=== PATIENT | male | born 1945 | race Hispanic/Latino ===

== ENCOUNTER 2017-08-24 08:41 | Outpatient (CLI) | payer MEDICARE ==
--- NOTE | 2017-08-24 09:05 | RAD ---
LUMBAR SPINE 2 VIEWS: HISTORY: Low back pain. Prior surgery. COMPARISON: 06/29/17. FINDINGS: Bilateral pedicle screws and vertical rods are now in place at the l5-S1 level without perihardware lucency apparent. Other pedicles are intact. Grade I spondylolisthesis at the lumbosacral junction is stable compared to recent CT. Disk space narrowing and osteophytosis throughout the remainder o f the lumbar spine are otherwise stable. IMPRESSION: Operative fixation of the lumbosacral junction without evidence of hardware complication. POS: SHANDA
== END 2017-08-24 08:42 | disposition home or self-care (01) ==
LOC: TBSIIMAG 08:41
PROVIDERS: ATTEND Neurological Surgery
DX: M43.16 Spondylolisthesis, lumbar region (principal)
CPT/HCPCS: 72100

== ENCOUNTER 2017-10-27 12:18 | Outpatient (CLI) | payer MEDICARE ==
[2017-10-27 13:52] LABS: PTT 29.7 SEC (22.9-36.1); Prothrombin Time 13.1 SEC (12.0-14.7)
[2017-10-27 14:05] LABS: Hematocrit 36.9 % (42.0-52.0); Mean Platelet Volume 7.5 fL (7.4-10.4); White Blood Cell (WBC) Count 6.6 thou/uL (4.8-10.8)
== END 2017-10-27 12:19 | disposition home or self-care (01) ==
LOC: LABBT 12:18
PROVIDERS: ATTEND Neurological Surgery
DX: Z01.812 Encounter for preprocedural laboratory examination (principal); G56.03 Carpal tunnel syndrome, bilateral upper limbs
CPT/HCPCS: 85027; 85610; 85730

== ENCOUNTER 2017-10-31 07:17 | Day surgery (SDC) | payer MEDICARE ==
[2017-10-27 12:38] VITALS: BMI 29.0
--- NOTE | 2017-10-30 13:24 | HP ---
HISTORY OF PRESENT ILLNESS: Mr. Gupta is a 72-year-old male who presents with bilateral carpal t unnel syndrome on the right greater than left. He has had this pain, numbness, tingling in his hands and fingers for about 4 years and this has just gotten worse. He has gritty sensation in the ventra l side of the hand and has been dropping things, because of weakness and loss of sensation in the palma d. The pain in the hands wakes him up at night and he has tried to wear splints on his risks, which seemed to help some. EMG evidence of bilateral carpal tunnel from 2014. REVIEW OF SYSTEMS: Ten-point review of systems completed and otherwise negative unless stated in the above HPI. PAST MEDICAL HISTORY: Gout, hypertension, hypercholesterolemia, bilateral carpal tunnel syndrome. PAST SURGICAL HISTORY: Laminectomy with Dr. Harden in 07/2011, L5-S1 laminectomy and TLIF with Dr. Jeevan arrington in 07/2017. HOSPITALIZATIONS: Acute gastroenteritis in 2016. FAMILY HISTORY: Father is at 54 years old with stomach cancer. Mother is at 84 ye ars old with heart attack. Brothers with kidney cancer. Sister has lung cancer diagnosed. The patient's son passed at 7 years old from leukemia, diagnosed with cancer. SOCIAL HISTORY: The patient is a nonsmoker, no alcohol use. Works part-time for [employer]. He is and has 2 sons and 1 daughter. He lives with his spouse. MEDICATIONS: 1. Indomethacin ER 75 mg capsule extended release 1 capsule by mouth twice daily with food. 2. Simvastatin 20 mg tablet, 1 tablet in the evening orally once a day. 3. Lisinopril 10 mg tablet, 1 tablet orally once a day. 4. Allopurinol 300 mg tablet, 1 tablet orally once a day. 5. Claritin 10 mg tablet, 1 tablet orally once a day. ALLERGIES: IV DYE. PHYSICAL EXAMINATION: HEENT: Head is normocephalic, atraumatic. Hearing intact. Moist mucous membranes. Trachea is midl ine. Eyes: Pupils are equal and reactive to light. Extraocular muscles are intact. Sclerae is whi te, nonicteric. PSYCHIATRIC: Normal mood and affect. CARDIOVASCULAR/CARDIOPULMONARY: No cyanosis or clubbing noted. Intact pedal pulses bilaterally. MUSCULOSKELETAL: Upper strength, 4/5 strength in bilateral hands. Full range of motion. Sensory de ficit bilaterally and some positive Tinel's at both hands at the wrist. RESPIRATORY: Even respirations, good effort in all lung sanchez, sound clear with no wheezing or crac kles. NEUROLOGIC: Cranial nerves II through XII grossly intact. Speech is fluent. He answers my question s appropriately. The patient has normal gait and station. ASSESSMENT: Bilateral carpal tunnel syndrome. PLAN: Dr. Pedroza offered a right carpal tunnel surgery for the loss of sensation in his hands. I reviewed the risks, benefits, and possible complications of surgery. The patient fully understands the risk and is willing to proceed with the surgery.
[2017-10-31] MEDS ORDERED: Bacitracin Zinc Ointment 30 gm TUBE ONE (09:21)
[2017-10-31] MEDS ORDERED: Lidocaine 1% (PF) 30 ML VIAL ONE (09:21)
[2017-10-31] MEDS ORDERED: Sodium Chloride 0.9% 10 ML ONE (09:21)
[2017-10-31] MEDS ORDERED: Sodium Chloride 0.9% 0 ML ONE (09:21)
[2017-10-31] MEDS ORDERED: CEFAZOLIN/Water 2 GM/20 ML SYRINGE ONE (09:26)
[2017-10-31] MEDS ORDERED: Fentanyl 100 MCG/2 ML VIAL ONE ×3 (10:05→12:27)
--- NOTE | 2017-10-31 11:49 | OP ---
DATE OF PROCEDURE: 10/01/2017 SURGEON: Francine Pedroza M.D. MECHANICAL ENGINEERING TECHNOLOGIST: Edwin Mcmanus PA-C PREOPERATIVE INDICATION: Treat pain, prevent neurological deterioration. 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 OPERATIVE PROCEDURE: Median neurorrhaphy at the wrist, release of carpal tunnel. PREOPERATIVE MEDICATION: Ancef 2 grams IV. DRAIN NUMBER: Zero. DRAIN TYPE: None. PROCEDURE IN DETAIL: The patient was brought to the operating room. IV sedation was administered. The entire right arm was sterilely prepped and draped. We planned our incision in line with the web space between the ring and middle finger extending from the distal palmar crease of the wrist into th e palm to the base of thenar eminence. Under the planned incision, we infused local anesthetic. We opened with a 15 blade knife and controlled bleeding with bipolar cautery. We placed a self-retainin g retractor and brought the fresh 15 blade into the field. We opened the transverse carpal ligament until we entered the carpal tunnel. We then put a [place] 4 dissector over the median nerve, protec ting and cut the remainder of the transverse carpal ligament on the [place] 4. We continued the tra nsection of the transverse carpal ligament until we encountered the palmar fat pad distally. We then changed directions. We placed a rake under the skin and then placed scissors with the blades inside and outside the transverse carpal ligament and advanced towards the forearm. We completely decompre ssed the median nerve from the forearm to the palm. We irrigated copiously with bacitracin irrigatio n. We closed the skin with vertical mattress sutures. We applied a sterile dressing. This was a cl hesham case and no contamination.
[2017-10-31] MEDS ORDERED: Labetalol HCl 100 MG/20 ML VIAL ONE (12:50)
[2017-10-31] MEDS ORDERED: Labetalol HCl 100 MG/20 ML VIAL SLOW IVP SCH (13:00)
[2017-10-31] MEDS ORDERED: PHENYLEPHRINE-NS 100 MCG/ML 10 ML SYRINGE ONE (14:50)
[2017-10-31] MEDS ORDERED: Dexamethasone 20 MG/5 ML VIAL ONE (14:50)
[2017-10-31] MEDS ORDERED: Lidocaine 1% PF 5 ML VIAL ONE (14:50)
[2017-10-31] MEDS ORDERED: Ondansetron HCl/PF 4 MG/2 ML Vial ONE (14:50)
[2017-10-31] MEDS ORDERED: Propofol 200 MG/20 ML VIAL ONE (14:50)
== END 2017-10-31 14:15 | disposition home or self-care (01) ==
LOC: SDC 07:17
PROVIDERS: ATTEND Neurological Surgery
PROC: 01N50ZZ Release Median Nerve, Open Approach (ICD-10-PCS; principal; 2017-10-31)
DX: G56.01 Carpal tunnel syndrome, right upper limb (principal); I10 Essential (primary) hypertension; M10.9 Gout, unspecified; E78.00 Pure hypercholesterolemia, unspecified; Z98.890 Other specified postprocedural states; Z79.899 Other long term (current) drug therapy; Z91.041 Radiographic dye allergy status; Z98.1 Arthrodesis status
CPT/HCPCS: 96374; A4216; J1100; J2001; J2405; J2704; J3010; J3490

== ENCOUNTER 2018-02-27 09:36 | Day surgery (SDC) | payer MEDICARE ==
[2018-02-26 15:37] VITALS: BMI 30.2
--- NOTE | 2018-02-27 09:10 | HP ---
SHORT STAY HISTORY AND PHYSICAL DATE OF ADMISSION: 02/27/2018 HISTORY OF PRESENT ILLNESS: This is a 72-year-old [place] male, seen by me 2 months ago with abdominal pain, nausea, vomiting, and melena. He had an EGD done in 01/2018 and was found to have ga stric ulcer and also had a gastric polyp. The patient was placed on omeprazole. The patient had dev eloped recurrence of symptoms approximately 10 days ago. He had an episode of abdominal discomfort, nausea, and black tarry stool for nearly 3-4 days. He also felt dizzy and weak. He also passed some mucus discharge per rectum. The patient comes for EGD and colonoscopy, because of above reason. ALLERGIES: IODINE. MEDICAL ILLNESSES: 1. Hyperlipidemia. 2. Hypertension. 3. Gout. 4. Kidney stones. 5. Chronic acid reflux. PHYSICAL EXAMINATION: VITAL SIGNS: Pulse is 70, blood pressure 130/80. HEENT: Conjunctivae clear. CARDIOVASCULAR SYSTEM AND LUNGS: Within normal limits. ABDOMEN: Soft to palpate. No organomegaly. No tenderness. No masses. ADMITTING DIAGNOSES: 1. Recurrent symptoms of abdominal discomfort. 2. Nausea. 3. Dyspepsia. 4. Also history of black tarry stool. 5. He is also passing mucus per rectum. The patient comes for an EGD and a colonoscopy.
--- NOTE | 2018-02-27 12:45 | OP ---
DATE OF PROCEDURE: 02/27/2018 SURGEON: Ezra Chaudhary M.D. OPERATIVE PROCEDURE: Esophagogastroduodenoscopy with biopsy. PREOPERATIVE DIAGNOSES: 1. Dyspepsia. 2. History of melena. 3. Gastric ulcer diagnosed in 01/2018. POSTOPERATIVE DIAGNOSES: 1. Normal esophageal mucosa. 2. Normal duodenum to the 3rd and 4th part. 3. Gastric polyps over the gastric body. 4. Gastric ulcer. PROCEDURE NOTE: The patient was placed on his left lateral position and was given sedation by Anesth esia Department. A Pentax video gastroscope under direct vision was passed into the oropharynx to th e GE junction, into the stomach and subsequent descending duodenum. The vocal cords appeared healthy . The esophageal mucosa appears normal throughout. The GE junction, no pathology. Retroflexion maya led to show any lesion in the fundus or cardia. Over the gastric body, the patient found to have 2-3 small polyps. The polyps were hyperplastic. No other polyps or ulceration. No active bleeding see n. The gastric antrum, no pathology seen. The duodenal bulb and descending duodenum, no pathology s een. Biopsy of the gastric polyp. The stomach was decompressed and the scope removed. DISCHARGE PLANNING: This is a 72-year-old male with abdominal pain, nausea, vomiting, history of black tarry stool and also the mucus discharge per rectum. The EGD showed multiple gastr ic polyps over the gastric body. The colonoscopy showed mild proctitis, nonspecific. He was also fo und to have a large cecal AVM and sigmoid diverticular disease. DISCHARGE RECOMMENDATIONS: 1. High-fiber diet. 2. Continue omeprazole as before. 3. To come back to clinic in 2 weeks.
[2018-02-27] MEDS ORDERED: PROPOFOL 200 MG/20 ML VIAL ONE (13:14)
--- NOTE | 2018-02-27 18:25 | OP ---
DATE OF SURGERY: 02/27/2018 OPERATIVE PROCEDURE: Colonoscopy with biopsy. PREOPERATIVE DIAGNOSES: A 72-year-old male with melena, mucus per rectum and also pos itive stool guaiac. The patient underwent colonoscopy. POSTOPERATIVE DIAGNOSES: 1. Sigmoid diverticular disease. 2. Hemorrhoids. 3. Focal areas of mucosal erythema and edema of the rectum and lower sigmoid area, nonspecific. 4. Polypoid-appearing mucosa, sigmoid colon, most likely represents hyperplastic mucosa of the polyp biopsied. PROCEDURE IN DETAIL: The patient was placed on his left lateral position under given sedation by Ane sthesia Department. A rectal exam was done before scope was advanced into the rectum. No lesion fel t on rectal exam. A Pentax video colonoscope was introduced into the rectum and advanced all the way to the cecum. The prep was excellent. The mucosa appeared normal throughout the colon with normal vascular pattern. The appendiceal orifice, ileocecal valve, no pathology seen. There was a very lar ge area of the cecum, which was not bleeding and not cauterized during the exam. The ascending colon , hepatic flexure, no pathology seen. The transverse colon, splenic flexure, descending colon, no pa thology seen. The sigmoid colon shows mild diverticular disease. At 40 cm from the anal margin, the patient found to have a polypoid-appearing mucosa, which was biopsied. In the rectal vault, the muc william was somewhat erythematous and edematous. The findings were nonspecific. Biopsy was obtained fro m the area. The rectum also had hemorrhoids.
== END 2018-02-27 12:23 | disposition home or self-care (01) ==
LOC: SDC 09:36
PROVIDERS: ATTEND Internal Medicine Gastroenterology
PROC: 0DBE8ZX Excision of Large Intestine, Via Natural or Artificial Opening Endoscopic, Diagnostic (ICD-10-PCS; principal; 2018-02-27)
PROC: 0DB68ZX Excision of Stomach, Via Natural or Artificial Opening Endoscopic, Diagnostic (ICD-10-PCS; 2018-02-27)
DX: K92.1 Melena (principal); K31.7 Polyp of stomach and duodenum; K64.9 Unspecified hemorrhoids; K57.30 Diverticulosis of large intestine without perforation or abscess without bleeding; K62.89 Other specified diseases of anus and rectum; Q27.33 Arteriovenous malformation of digestive system vessel; E78.5 Hyperlipidemia, unspecified; I10 Essential (primary) hypertension; M10.9 Gout, unspecified; K21.9 Gastro-esophageal reflux disease without esophagitis; Z87.11 Personal history of peptic ulcer disease; Z79.899 Other long term (current) drug therapy; Z91.041 Radiographic dye allergy status; Z98.890 Other specified postprocedural states
CPT/HCPCS: 88305; 88312; J2704

== ENCOUNTER 2018-06-05 12:33 | Inpatient (IN) | payer MEDICARE ==
[2018-06-05] MEDS ORDERED: Pantoprazole 40 MG VIAL ONE (13:17)
[2018-06-05 13:38] LABS: Hemoglobin 12.2 g/dL (14.0-18.0)
[2018-06-05 13:54] LABS: Bilirubin Negative (Negative); Blood, Urine Negative (Negative); Clarity CLEAR (Clear); Glucose, Urine (Dipstick) Negative (Negative); Leukocyte Negative (Negative); Nitrite Negative (Negative); Protein, Urine (Dipstick) Negative (Neg-Trace); Specific Gravity, Urine 1.012 (1.002-1.036); Urobilinogen 0.2 mg/dL (0.2-1.0); pH, Urine 5.5 (5.0-9.0)
[2018-06-05 14:06] LABS: CK (CPK) 395 U/L (30-200); Lipase 73 U/L (8-78)
[2018-06-05 14:08] LABS: Troponin I Less than 0.010 ng/mL (< 0.028)
[2018-06-05 15:28] VITALS: BMI 29.7
[2018-06-05] MEDS ORDERED: Ondansetron ODT 4 MG TAB SL PRN (15:40)
[2018-06-05] MEDS ORDERED: Ondansetron HCl/PF 4 MG/2 ML Vial IVP PRN (15:40)
[2018-06-05] MEDS ORDERED: Sodium Chloride 0.9% 1,000 ML IV SCH (15:45)
[2018-06-05] MEDS ORDERED: Ondansetron ODT 4 MG TAB PO PRN (16:43)
[2018-06-05] MEDS ORDERED: Acetaminophen 325 MG TAB PO PRN (16:43)
[2018-06-05] MEDS ORDERED: Zolpidem Tartrate 5 MG TAB PO PRN (16:43)
[2018-06-05] MEDS: Sodium Chloride 0.9% 1,000 ML IV SCH (17:17)
--- NOTE | 2018-06-05 17:25 | HP ---
DATE OF ADMISSION: 06/05/2018 PRIMARY CARE PROVIDER: Evelyne Murcia M.D. CHIEF COMPLAINT: Referred to the [facility]ist [facility] for acute renal failure by [facility] after transfer from [facility]. HISTORY OF PRESENT ILLNESS: The patient states that 4-6 weeks he has had problems. He has had recur rent GI bleeding with black stools. He has had colonoscopy and esophagogastroduodenoscopy 02/27/2018 , which demonstrated a gastric ulcer. He had a previous gastric ulcer in 01/2018. Currently, he pre sented with weakness, lightheadedness, dizziness, nausea with eating. He has been noted to have nuria k stools. Rectal exam done today revealed that they were positive for occult blood. His hemoglobin done in [place] was approximately 13, which is stable number for him. He was noted to have some catalino y abnormal renal function numbers, which had been normal previously and was referred to [facility]. PAST MEDICAL HISTORY: Includes hypertension, dyslipidemia, gout, muscle spasms, peptic ulcer disease . CURRENT MEDICATIONS: Protonix 40 mg a day, Zocor 20 mg a day, lisinopril 10 mg a day, allopurinol 10 0 mg a day, tizanidine 4 mg b.i.d. for muscle spasms. ALLERGIES: IODINATED CONTRAST. FAMILY HISTORY: He had a brother who of renal cell cancer. Father of stomach cancer. SOCIAL HISTORY: He is . Full code status. , next of kin at bedside. He quit smoking 30 + years ago. He drinks no alcohol. Uses no illicit drugs. REVIEW OF SYSTEMS: General: He has had lightheadedness arising. He has had a light headache on his right side. No fever or chills. Eyes: He has had blurry vision on the right for a month. Ears, n ose and throat: He has occasional nosebleeds. No ear pain or drainage. No trouble swallowing. Car diac: No chest pain, orthopnea or paroxysmal nocturnal dyspnea. Respiratory: No cough, wheezing or asthma. Gastrointestinal: He has had dark stools. He is in no diarrhea, no nausea, no vomiting, n o abdominal pain now. Genitourinary: He says his urine is dark yellow, but not tea colored. No jessie n. Musculoskeletal: He states he has aches and pains. He has had a lot of muscle spasms. He has b een working outside in the heat recently. Neurologic: No strokes, seizures or focal weakness. Psyc hiatric: No anxiety or depression. Skin: No bruises, bleeding or rash. Heme/Lymph: No tender or swollen lymph nodes in the axilla, inguinal or cervical area. PHYSICAL EXAMINATION: GENERAL: Currently, he is an alert, oriented and cooperative, pleasant gentleman. VITAL SIGNS: Blood pressure 134/70, temperature 98.3, pulse 63, respirations 16, O2 sat 100 on room air. HEENT: Pupils equal and round and reactive. Extraocular movements are intact. Sclerae white. Tymp anic membranes clear. Nose is clear. Oral mucous membranes are wet. NECK: Supple without jugular venous distention, adenopathy or thyromegaly. CHEST: Clear to auscultation and percussion. HEART: Regular rate and rhythm. First and second heart sounds are clear. There are no murmurs or g allops. ABDOMEN: Soft. Bowel sounds are normal. There is no hepatosplenomegaly, no mass, no rebound, no br uits. EXTREMITIES: Reveal no cyanosis, clubbing or edema. PULSES: Carotid, radial, femoral and dorsalis pedis pulses intact. SKIN: Warm and dry without bruises or rash. HEME/LYMPH: No tender or swollen lymph nodes in axilla, inguinal or cervical area. NEUROLOGICAL: Cranial nerves II-XII are intact. Deep tendon reflexes symmetric. Moves all extremit ies. IMAGING: Chest x-ray, no cardiomegaly, CHF or infiltrate, reviewed by me. EKG, normal sinus rhythm, normal EKG, reviewed by me. LABORATORY DATA: Initial hemoglobin 13.0, follow up in 3 hours 12.2, platelet count 258,000, white c ount 7.2. Chemistries, creatinine 2.89, BUN 47, CO2 15, chloride 109. Liver function tests normal. CK 395. Cardiac enzymes normal. Lipase 73. Urine, specific gravity 1.012, pH 5.5, otherwise unrem arkable. DIAGNOSES: 1. Acute renal failure of unknown etiology. 2. Hypertension, on JOHNSON inhibitor. 3. Dyslipidemia. 4. Gout. 5. Peptic ulcer disease, on Protonix. 6. Muscle spasms with a mildly elevated CK. PLAN: 1. Hold regular medicines except Protonix. 2. Serial basic metabolic profile and CBC every 6 hours for the next 18 hours. 3. Renal workup with renal ultrasound, phosphorus, magnesium, urine potassium, sodium, protein. I h ave discussed this with the patient and his family. When the data is in tomorrow morning, I will rev iew what is needed and most likely we will obtain a Nephrology consult. I see no need for Nephrology consult until the following data ordered is in. He will be given IV fluids at 125 mL an hour.
[2018-06-05 17:41] LABS: #Basophils 0.1 thou/uL (0.0-0.2); #Eosinphils 0.5 thou/uL (0.0-0.7); #Lymphocytes 2.7 thou/uL (1.20-3.40); #Monocytes 0.4 thou/uL (0.11-0.59); #Neutrophils 3.3 thou/uL (1.40-6.50); %Basophils 0.8 % (0.0-1.0); %Eosinophils 7.8 % (0.0-10.0); %Lymphocytes 38.2 % (21.0-51.0); %Monocytes 5.4 % (0.0-10.0); %Neutrophils 47.8 % (42.0-75.0); Hemoglobin 11.8 g/dL (14.0-18.0); Mean Corpuscular Volume 88.7 fL (78.0-98.0); Mean Platelet Volume 7.2 fL (7.4-10.4); Platelet Count 200 thou/uL (130-400); RBC Distribution Width 13.9 % (11.5-14.5); Red Blood Cell (RBC) Count 3.81 mill/uL (4.70-6.10)
[2018-06-05 18:12] LABS: Anion Gap 13 mmol/L (10-20); BUN (Urea Nitrogen) 39 mg/dL (8.4-25.7); Calc. Creatinine Clearance 41 mL/min (70-130); Calcium 8.6 mg/dL (7.8-10.44); Carbon Dioxide 17 mmol/L (23-31); Chloride 113 mmol/L (98-107); Estimated GFR-MDRD 33; Glucose 114 mg/dL (83-110); Potassium 4.4 mmol/L (3.5-5.1); Sodium 139 mmol/L (136-145)
[2018-06-05 19:19] LABS: Potassium, Urine 16.2 mmol/L
--- NOTE | 2018-06-05 20:25 | ULT ---
RENAL SONOGRAM: 06/05/18 HISTORY: Renal failure. FINDINGS: The right kidney measures 10.2 cm x 5.8 cm. Left kidney measures 10.9 cm x 5.2 cm. There is a 2.3 cm anechoic cystic structure mid portion right kidney demonstrating sonographic charac teristics compatible with a cyst. There is also an anechoic cystic structure at the junction of the mid portion and inferior pole left kidney measuring 1.8 cm demonstrating characteristics also most compatible with a cyst. There is no renal cortical thinning present. No hydronephrosis, renal calculus, or perinephric fluid collection is seen bilaterally. The urinary bladder demonstrates a normal sonographic appearance with a prevoid urinary bladder volum e of 333.5 mL. IMPRESSION: 1. Bilateral renal cysts. 2. No evidence of hydronephrosis. POS: NAHEED
[2018-06-06 00:03] LABS: #Eosinphils 0.5 thou/uL (0.0-0.7); #Lymphocytes 2.6 thou/uL (1.20-3.40); #Monocytes 0.5 thou/uL (0.11-0.59); #Neutrophils 2.9 thou/uL (1.40-6.50); %Basophils 0.8 % (0.0-1.0); %Eosinophils 7.4 % (0.0-10.0); %Lymphocytes 40.4 % (21.0-51.0); %Monocytes 7.2 % (0.0-10.0); %Neutrophils 44.3 % (42.0-75.0); Hemoglobin 11.2 g/dL (14.0-18.0); Mean Corpuscular HGB CONC 35.5 g/dL (32.0-36.0); Mean Corpuscular Hemoglobin 31.5 pg (27.0-31.0); Mean Corpuscular Volume 88.6 fL (78.0-98.0); Mean Platelet Volume 6.9 fL (7.4-10.4); Platelet Count 201 thou/uL (130-400); RBC Distribution Width 14.1 % (11.5-14.5); Red Blood Cell (RBC) Count 3.57 mill/uL (4.70-6.10); White Blood Cell (WBC) Count 6.5 thou/uL (4.8-10.8)
[2018-06-06 00:20] LABS: Anion Gap 11 mmol/L (10-20); BUN (Urea Nitrogen) 33 mg/dL (8.4-25.7); Calc. Creatinine Clearance 48 mL/min (70-130); Calcium 8.3 mg/dL (7.8-10.44); Carbon Dioxide 18 mmol/L (23-31); Chloride 115 mmol/L (98-107); Estimated GFR-MDRD 41; Glucose 96 mg/dL (83-110); Potassium 4.4 mmol/L (3.5-5.1); Sodium 140 mmol/L (136-145)
[2018-06-06] MEDS: Sodium Chloride 0.9% 1,000 ML IV SCH ×3 (01:19→17:26)
[2018-06-06 06:28] LABS: #Eosinphils 0.4 thou/uL (0.0-0.7); #Lymphocytes 2.1 thou/uL (1.20-3.40); #Monocytes 0.4 thou/uL (0.11-0.59); #Neutrophils 2.9 thou/uL (1.40-6.50); %Basophils 0.3 % (0.0-1.0); %Eosinophils 6.6 % (0.0-10.0); %Lymphocytes 35.9 % (21.0-51.0); %Monocytes 6.8 % (0.0-10.0); %Neutrophils 50.4 % (42.0-75.0); Hemoglobin 11.2 g/dL (14.0-18.0); Mean Corpuscular HGB CONC 34.2 g/dL (32.0-36.0); Mean Corpuscular Hemoglobin 30.4 pg (27.0-31.0); Platelet Count 198 thou/uL (130-400); RBC Distribution Width 14.1 % (11.5-14.5); White Blood Cell (WBC) Count 5.8 thou/uL (4.8-10.8)
[2018-06-06 06:45] LABS: Anion Gap 11 mmol/L (10-20); BUN (Urea Nitrogen) 28 mg/dL (8.4-25.7); Calc. Creatinine Clearance 60 mL/min (70-130); Calcium 8.5 mg/dL (7.8-10.44); Carbon Dioxide 18 mmol/L (23-31); Chloride 117 mmol/L (98-107); Estimated GFR-MDRD 52; Glucose 95 mg/dL (83-110); Potassium 4.4 mmol/L (3.5-5.1); Sodium 142 mmol/L (136-145)
[2018-06-06 06:48] LABS: Magnesium 1.9 mg/dL (1.6-2.6); Phosphorus 2.7 mg/dL (2.3-4.7); Uric Acid 5.2 mg/dL (3.5-7.2)
[2018-06-06] MEDS ORDERED: Pantoprazole 40 MG GRANULES PACKET PO SCH (09:00)
[2018-06-06] MEDS ORDERED: tiZANidine HCl 4 MG TAB PO PRN (09:53)
--- NOTE | 2018-06-06 10:08 | PDOC.PN ---
- Subjective Encounter Start Date: 06/06/18 Encounter Start Time: 10:06 Subjective: no dizziness , no weakness - Objective Resuscitation Status: Resuscitation Status FULL:Full Resuscitation MAR Reviewed: Yes Vital Signs & Weight: Vital Signs (12 hours) Temp Pulse Resp BP Pulse Ox 06/06/18 07:44 98.2 F 74 20 124/75 95 06/06/18 03:30 97.9 F 74 18 125/79 95 06/06/18 00:35 97.9 F 84 18 117/70 94 L I&O: 06/05/18 06/06/18 06/07/18 06:59 06:59 06:59 Intake Total 240 Balance 240 Result Diagrams: 06/06/18 06:08 06/06/18 06:08 Phys Exam - Physical Examination Neck: no JVD Respiratory: clear to auscultation bilateral Cardiovascular: RRR, no significant murmur Gastrointestinal: soft, positive bowel sounds Musculoskeletal: no edema Dx/Plan (1) Acute renal failure Status: Acute Qualifiers: Acute renal failure type: unspecified Qualified Code(s): N17.9 - Acute kidney failure, unspecified (2) HTN (hypertension) Code(s): I10 - ESSENTIAL (PRIMARY) HYPERTENSION Status: Acute Qualifiers: Hypertension type: essential hypertension Qualified Code(s): I10 - Essential (primary) hypertension (3) Anemia Code(s): D64.9 - ANEMIA, UNSPECIFIED Status: Acute Qualifiers: Anemia type: other cause Other causes of anemia: other cause, not classified Qualified Code(s): D64.89 - Other specified anemias (4) Dyslipidemia Code(s): E78.5 - HYPERLIPIDEMIA, UNSPECIFIED Status: Chronic - Plan renal fcn improving with iv fluids -: cont to monitor , rpt ck * .
[2018-06-06 13:50] LABS: Anion Gap 12 mmol/L (10-20); BUN (Urea Nitrogen) 23 mg/dL (8.4-25.7); CK (CPK) 397 U/L (30-200); Calc. Creatinine Clearance 63 mL/min (70-130); Calcium 8.9 mg/dL (7.8-10.44); Carbon Dioxide 19 mmol/L (23-31); Chloride 114 mmol/L (98-107); Estimated GFR-MDRD 56; Glucose 111 mg/dL (83-110); Potassium 4.7 mmol/L (3.5-5.1); Sodium 140 mmol/L (136-145)
[2018-06-07] MEDS: Sodium Chloride 0.9% 1,000 ML IV SCH ×2 (01:45→09:12)
[2018-06-07] MEDS ORDERED: Allopurinol 300 MG TAB PO SCH (09:00)
[2018-06-07] MEDS ORDERED: Allopurinol 100 MG TAB PO SCH (09:00)
[2018-06-07] MEDS ORDERED: Atorvastatin Calcium 10 MG TAB PO SCH (09:00)
[2018-06-07 09:08] VITALS: BP 130/71; TEMP 98.3
--- NOTE | 2018-06-07 12:14 | DIS ---
TRANSFER OF CARE NOTE PRIMARY CARE PHYSICIAN: Dr. Murcia DATE OF ADMISSION: 06/05/2018 DATE OF DISCHARGE: 06/07/2018 DISCHARGE DISPOSITION: Home. FINAL DIAGNOSES: 1. Acute renal failure, resolved. 2. Hypertension. 3. Gastrointestinal bleeding. 4. Dyslipidemia. DISCHARGE MEDICATIONS: Protonix 40 mg a day, tizanidine 4 mg p.o. p.r.n., Zocor 20 mg a day, allopur inol 300 mg a day. MEDICATIONS HELD: Lisinopril. CODE STATUS: FULL. PENDING AT THE TIME OF DISCHARGE: Nothing. HOSPITAL COURSE: The patient was admitted to the [facility] through [facility] after transfer from [facility] for acute renal failure. The patient had had recent problems with ulcers bleeding. What is most pertinent is he had been working out in the heat, sweating profusely. He stated he drank a significant amount of water. His initial laboratory revea led white count of 7.2, hemoglobin 13.0 and a platelet count of 258,000. His occult blood test was p ositive; however, he had no bleeding during his hospital stay and his stools stayed green after admis tran. His admitting creatinine was 2.89, BUN 47, chloride 109, CO2 15. CK was 395. The remainder o f his chemistries were unremarkable. The patient's lisinopril was held. He was started on IV fluids . His pain, etc. improved rapidly. His creatinine came down stepwise 1.97 to 1.66 to 1.34 to now 1. 27. He still remains modestly acidotic with a chloride of 114 and CO2 of 19. He is asymptomatic, de sirous of going home. His follow up CK was 397. His current vital signs are blood pressure 130/71, pulse 66, respirations 16, temperature 98.3. PHYSICAL EXAMINATION: Reveals a normal cardiorespiratory exam. He is being discharged for followup with Dr. Murcia within 1 week. He has been told not to do any heavy work or working in the heat until he sees his PCP. DISCUSSION: The patient with a history of GI bleeding had no evidence of bleeding in the hospital. After IV fluids were given his hemoglobin dropped down to 11 and stayed stable there. It is worrisom e that he was having some rhabdomyolysis that precipitated this acute renal failure; however, it is p ossible that it was a simple prerenal azotemia related to work in the heat. It is difficult to make a definitive diagnosis. Certainly at follow up, we would recommend a CBC and a basic metabolic profi le and a CK. I was hesitant to stop his statin as CK level he is currently at does not really indica te a rhabdomyolysis state. CONSULTATIONS: None. PROCEDURES: None. The only interventional therapy this patient received during his hospital stay was IV fluids and a re moval of his JOHNSON inhibitor.
== END 2018-06-07 14:21 | disposition home or self-care (01) | DRG 683 ==
LOC: ERS 12:33 → T4-B 15:21
PROVIDERS: ADMIT Internal Medicine; ATTEND Internal Medicine
DX: N17.9 Acute kidney failure, unspecified (principal); K92.2 Gastrointestinal hemorrhage, unspecified; I10 Essential (primary) hypertension; E78.5 Hyperlipidemia, unspecified; Z87.11 Personal history of peptic ulcer disease; Z91.041 Radiographic dye allergy status; M10.9 Gout, unspecified; M62.838 Other muscle spasm
CPT/HCPCS: 36415; 76770; 80048; 81003; 82550; 82570; 83690; 83735; 83880; 84100; 84133; 84300; 84550; 85025; 93005; C9113

== ENCOUNTER 2018-07-31 17:07 | Emergency (ER) | payer MEDICARE ==
[2018-07-31 18:10] LABS: #Eosinphils 0.4 thou/uL (0.0-0.7); #Lymphocytes 1.9 thou/uL (1.20-3.40); #Monocytes 0.6 thou/uL (0.11-0.59); #Neutrophils 7.9 thou/uL (1.40-6.50); %Basophils 0.4 % (0.0-1.0); %Eosinophils 3.6 % (0.0-10.0); %Lymphocytes 17.7 % (21.0-51.0); %Monocytes 5.2 % (0.0-10.0); %Neutrophils 73.1 % (42.0-75.0); Hemoglobin 13.3 g/dL (14.0-18.0); Mean Corpuscular HGB CONC 35.1 g/dL (32.0-36.0); Mean Corpuscular Hemoglobin 31.6 pg (27.0-31.0); Mean Platelet Volume 7.3 fL (7.4-10.4); Platelet Count 273 thou/uL (130-400); RBC Distribution Width 14.6 % (11.5-14.5); Red Blood Cell (RBC) Count 4.21 mill/uL (4.70-6.10); White Blood Cell (WBC) Count 10.8 thou/uL (4.8-10.8)
[2018-07-31 18:17] LABS: PTT 29.4 SEC (22.9-36.1); Prothrombin Time 13.4 SEC (12.0-14.7)
[2018-07-31 18:39] LABS: ALT (SGPT) 29 U/L (8-55); AST (SGOT) 31 U/L (5-34); Albumin 4.7 g/dL (3.4-4.8); Alkaline Phosphatase 96 U/L (40-150); Anion Gap 11 mmol/L (10-20); BUN (Urea Nitrogen) 24 mg/dL (8.4-25.7); Bilirubin, Total 0.4 mg/dL (0.2-1.2); Calc. Creatinine Clearance 0 mL/min (70-130); Calcium 9.8 mg/dL (7.8-10.44); Carbon Dioxide 23 mmol/L (23-31); Chloride 111 mmol/L (98-107); Estimated GFR-MDRD 62; Globulin 3.5 g/dL (2.4-3.5); Glucose 106 mg/dL (83-110); Protein, Total 8.2 g/dL (5.8-8.1); Sodium 141 mmol/L (136-145)
[2018-07-31 19:48] LABS: Iron 84 ug/dL (65-175); Iron Binding Capacity, Total 388 mcg/dL (261-462)
== END 2018-07-31 21:37 | disposition home or self-care (01) ==
LOC: ERS 17:07
DX: K62.5 Hemorrhage of anus and rectum (principal); M19.90 Unspecified osteoarthritis, unspecified site; E78.5 Hyperlipidemia, unspecified; I10 Essential (primary) hypertension; Z87.891 Personal history of nicotine dependence; Z79.899 Other long term (current) drug therapy
CPT/HCPCS: 36415; 80053; 82274; 82728; 83540; 83550; 83630; 85025; 85610; 85730; 86850; 86900; 86901; 87045; 87046; 87324; 87449; 87899; 99283

== ENCOUNTER 2019-07-18 08:16 | Outpatient (CLI) | payer MEDICARE ==
--- NOTE | 2019-07-18 09:11 | CT ---
Exam: Head CT without contrast HISTORY: Headache. Nosebleed. COMPARISON: 04/23/2005 FINDINGS: Hemorrhage: No intraparenchymal hemorrhage or extra-axial hematoma. Brain parenchyma: Cortical wolf-white matter differentiation is preserved. No mass effect or midline shift. Basilar cisterns are patent. Ventricular system: Ventricles and sulci are patent and symmetric. Calvarium: Intact. Sinuses and mastoid air cells: Mild mucosal disease of the paranasal sinuses. Hyperdensity in the lef t sphenoid sinus may represent inspissated secretions. IMPRESSION: No acute intracranial process.
== END 2019-07-18 08:17 | disposition home or self-care (01) ==
LOC: SCSCT 08:16
PROVIDERS: ATTEND Internal Medicine
DX: I11.9 Hypertensive heart disease without heart failure (principal); R51 Headache
CPT/HCPCS: 70450

== ENCOUNTER 2019-09-08 11:43 | Emergency (ER) | payer MEDICARE | END 2019-09-08 12:36 | disposition home or self-care (01) | LOC: SCSER 11:43 | DX: B02.9 Zoster without complications (principal); I10 Essential (primary) hypertension; M19.90 Unspecified osteoarthritis, unspecified site; E78.5 Hyperlipidemia, unspecified; E03.9 Hypothyroidism, unspecified; E78.00 Pure hypercholesterolemia, unspecified; M10.9 Gout, unspecified; Z87.891 Personal history of nicotine dependence; Z79.899 Other long term (current) drug therapy | CPT/HCPCS: 99283 ==

== ENCOUNTER 2024-11-29 11:16 | Outpatient (CLI) | payer MEDICARE ==
[2024-11-29 12:32] LABS: #Basophils 0.04 10x3/uL (0.0-0.2); %Basophils 0.5 % (0.0-1.0); %Eosinophils 3.6 % (0.0-10.0); %Lymphocytes 29.2 % (21.0-51.0); %Monocytes 5.6 % (0.0-10.0); %Neutrophils 60.9 % (42.0-75.0); Hematocrit 39.8 % (42.0-52.0); Hemoglobin 13.9 g/dL (14.0-18.0); Mean Corpuscular HGB CONC 34.9 g/dL (32.0-36.0); Mean Corpuscular Hemoglobin 31.7 pg (27.0-31.0); Mean Corpuscular Volume 90.7 fL (78.0-98.0); Mean Platelet Volume 9.4 fL (7.4-10.4); Platelet Count 259 10x3/uL (130-400); RBC Distribution Width 13.7 % (11.5-14.5); Red Blood Cell (RBC) Count 4.39 mill/uL (4.70-6.10)
[2024-11-29 12:56] LABS: Anion Gap 14 mmol/L (10-20); BUN (Urea Nitrogen) 32 mg/dL (8.4-25.7); Calc. Creatinine Clearance 0 mL/min (70-130); Calcium 10.2 mg/dL (7.8-10.44); Carbon Dioxide 20 mmol/L (23-31); Chloride 109 mmol/L (98-107); Estimated GFR 61; Glucose 102 mg/dL (83-110); Potassium 4.5 mmol/L (3.5-5.1); Sodium 138 mmol/L (136-145)
== END 2024-11-29 11:17 | disposition home or self-care (01) ==
LOC: LABBT 11:16
PROVIDERS: ATTEND Neurological Surgery
DX: Z01.818 Encounter for other preprocedural examination (principal); M47.12 Other spondylosis with myelopathy, cervical region
CPT/HCPCS: 80048; 85025; 93005; 93010

== ENCOUNTER 2024-11-29 12:00 | Inpatient (IN) | payer MEDICARE ==
[2024-11-29 11:48] VITALS: BMI 26.6
[2024-12-02] MEDS ORDERED: Promethazine 25 MG TAB PO PRN (07:44)
[2024-12-02] MEDS ORDERED: Milk Of Magnesia 30 ML UDCUP PO PRN (07:44)
[2024-12-02] MEDS ORDERED: traMADol HCl 50 MG TAB PO PRN (07:44)
[2024-12-02] MEDS ORDERED: Mag-Al 1200 mg/1200 mg/30 ML UDCUP PO PRN (07:44)
[2024-12-02] MEDS ORDERED: Ondansetron PF 4 MG/2 ML Vial IVP PRN (07:44)
[2024-12-02] MEDS ORDERED: diphenhydrAMINE 50 MG/ML VIAL IVP PRN (07:44)
[2024-12-02] MEDS ORDERED: HYDROcodone/Acetaminophen 10/325 mg Tablet PO PRN (07:44)
[2024-12-02] MEDS ORDERED: Morphine 2 MG/ML VIAL SLOW IVP PRN (07:44)
[2024-12-02] MEDS ORDERED: Vancomycin 1 GM VIAL ONE (08:23)
[2024-12-02] MEDS ORDERED: Bacitracin Zinc Ointment 30 gm TUBE ONE (08:23)
[2024-12-02] MEDS ORDERED: fentaNYL PF 100 MCG/2 ML SYRINGE ONE ×2 (09:00→11:09)
[2024-12-02] MEDS ORDERED: Lidocaine 1% PF 5 ML VIAL ONE (09:00)
[2024-12-02] MEDS ORDERED: Rocuronium Bromide 10 MG/ML (10ML VIAL) ONE (09:00)
[2024-12-02] MEDS ORDERED: PROPOFOL 20 ML ONE (09:01)
[2024-12-02] MEDS ORDERED: Dexamethasone 20 MG/5 ML VIAL ONE (09:01)
[2024-12-02] MEDS ORDERED: Ondansetron PF 4 MG/2 ML Vial ONE (09:01)
[2024-12-02] MEDS ORDERED: CEFAZOLIN 2 GM VIAL ONE (09:07)
[2024-12-02] MEDS ORDERED: PHENYLEPHRINE-NS 100 MCG/ML 10 ML SYRINGE ONE ×3 (09:41→10:20)
[2024-12-02] MEDS ORDERED: Phenylephrine 10 MG/ML VIAL ONE (09:54)
[2024-12-02] MEDS ORDERED: ePHEDrine Sulfate 50 MG/10 ML VIAL ONE (10:22)
[2024-12-02] MEDS ORDERED: SUGAMMADEX SODIUM 200 MG/2 ML VIAL ONE (10:39)
[2024-12-02] MEDS: Sodium Chloride 0.9% 1,000 ML IV SCH (12:11)
[2024-12-02] MEDS: Amlodipine 5 MG TAB PO SCH (12:13)
[2024-12-02] MEDS: CEFAZOLIN 2 GM in Sodium Chloride 0.9% 100 ML IVPB SCH (13:51)
[2024-12-02] MEDS: HYDROcodone/Acetaminophen 10/325 mg Tablet PO PRN (13:55)
[2024-12-02] MEDS: Atorvastatin Calcium 10 MG TAB PO SCH (22:16)
[2024-12-02] MEDS: Metoprolol Succinate XL 25 MG ER.TAB PO SCH (22:16)
[2024-12-03] MEDS: Acetaminophen 325 MG TAB PO PRN (00:20)
[2024-12-03] MEDS: Cyclobenzaprine 10 MG TAB PO PRN (00:20)
[2024-12-03] MEDS: Levothyroxine Sodium 88 MCG TAB PO SCH (05:35)
[2024-12-03] MEDS: Spironolactone 25 MG TAB PO SCH (09:44)
[2024-12-03] MEDS: Allopurinol 300 MG TAB PO SCH (20:28)
[2024-12-04 05:28] LABS: Hematocrit 36.2 % (42.0-52.0); Hemoglobin 12.3 g/dL (14.0-18.0); Mean Corpuscular Hemoglobin 31.5 pg (27.0-31.0); Mean Corpuscular Volume 92.6 fL (78.0-98.0); Mean Platelet Volume 9.3 fL (7.4-10.4); Platelet Count 242 10x3/uL (130-400); RBC Distribution Width 14.1 % (11.5-14.5); Red Blood Cell (RBC) Count 3.91 mill/uL (4.70-6.10)
[2024-12-04 06:27] LABS: Anion Gap 13 mmol/L (10-20); BUN (Urea Nitrogen) 27 mg/dL (8.4-25.7); Calc. Creatinine Clearance 71 mL/min (70-130); Calcium 9.5 mg/dL (7.8-10.44); Carbon Dioxide 23 mmol/L (23-31); Chloride 109 mmol/L (98-107); Estimated GFR 85; Glucose 107 mg/dL (83-110); Potassium 4.2 mmol/L (3.5-5.1); Sodium 141 mmol/L (136-145)
[2024-12-05] MEDS: Senokot S 8.6-50 MG TAB PO SCH (20:56)
[2024-12-06 16:08] VITALS: BP 136/67; TEMP 97.7
== END 2024-12-06 16:53 | DRG 472 ==
LOC: SURG A 12-02 06:30 → EDSTATUS 12-02 12:00
PROVIDERS: ADMIT Neurological Surgery; ATTEND Neurological Surgery
PROC: 00NW0ZZ Release Cervical Spinal Cord, Open Approach (ICD-10-PCS; principal; 2024-12-02)
PROC: 0RG1071 Fusion of Cervical Vertebral Joint with Autologous Tissue Substitute, Posterior Approach, Posterior Column, Open Approach (ICD-10-PCS; 2024-12-02)
PROC: 01N10ZZ Release Cervical Nerve, Open Approach (ICD-10-PCS; 2024-12-02)
DX: M48.02 Spinal stenosis, cervical region (principal); G95.9 Disease of spinal cord, unspecified; I10 Essential (primary) hypertension; E78.5 Hyperlipidemia, unspecified; M10.9 Gout, unspecified; Z91.041 Radiographic dye allergy status; Z88.8 Allergy status to other drugs, medicaments and biological substances; E03.9 Hypothyroidism, unspecified; Z79.899 Other long term (current) drug therapy
CPT/HCPCS: 36415; 80048; 85027; C1713; J1100; J2371; J2405; J2704; J3370; J7030